=== PATIENT | male | born 1965 | race Caucasian/White ===

== ENCOUNTER 2023-05-21 14:44 | Observation (INO) ==
[2023-05-21 15:49] LABS: Albumin Globulin Ratio 1.6 (0.9-2); Albumin Level 4.6 gm/dl (3.4-5.0); BUN Creatinine Ratio 22.1 (10-20); Bilirubin,Total 0.6 mg/dl (0.2-1.0); Calcium 9.3 mg/dl (8.6-10.3); Creatinine Clr Calc Pharmacy 107.1 ml/min; Est GFR (African American) 102.6 ml/min; Est GFR (Non-African American) 88.5 ml/min; Globulin 2.9 gm/dl (2.5-4.0); Potassium 3.7 mmol/L (3.5-5.1); Total Protein 7.5 gm/dl (6.0-8.3)
[2023-05-21 15:51] LABS: Basophils # (auto) 0.06 K/uL (0.00-0.20); Basophils % (auto) 0.8 %; Eosinophils # (auto) 0.08 K/uL (0.00-0.50); Hematocrit (blood only) 44.8 % (42.0-52.0); Hemoglobin 15.2 g/dl (14.0-18.0); Immature Granulocytes # (auto) 0.02 K/uL (0.01-0.20); Immature Granulocytes % (auto) 0.3 %; Lymphocytes # (auto) 1.63 K/uL (1.20-3.40); Lymphocytes % (auto) 21.4 %; Mean Corpuscular Hemoglobin 30.6 pg (25.0-34.0); Mean Corpuscular Hgb Conc 33.9 g/dL (32.0-36.0); Mean Corpuscular Volume 90.3 fL (80.0-100.0); Monocytes # (auto) 0.63 K/uL (0.11-0.59); Monocytes % (auto) 8.3 %; Neutrophils # (auto) 5.21 K/uL (1.40-6.50); Neutrophils % (auto) 68.2 %; Platelet Count 306 K/uL (130-400); RDW Coefficient of Variation 12.6 % (11.5-14.5); RDW Standard Deviation 41.6 fL (36.4-46.3); Red Blood Count 4.96 M/uL (4.70-6.10); White Blood Count 7.63 K/ul (4.8-10.8)
--- NOTE | 2023-05-21 16:00 | Emergency Department Note ---
Impression & Plan Near syncope, Unsteady, Heart palpitations, Brain fog ED Provider Note Provider: Amado Horne MD DATE OF SERVICE: 05/21/2023 CHIEF COMPLAINT: Feeling off, palpitations HISTORY OF PRESENT ILLNESS: Patient is a 58-year-old gentleman history of hypertension visiting from [place] to [place] presenting stating approximately 4 to 5 days of symptoms. Reports on Monday he got home from work in the evening and had sudden onset when looking at the window of some unsteadiness that was fairly prominent Monday and . No headache or falls. States felt little better Monday came to [facility] and just felt since things started on Monday that is been a little bit foggy or disconnected. Was out hunting briefly early this morning and came back. Has not slept the best but that is normal. Eating okay without nausea or abdominal pain. Denies chest pain or shortness of breath. Denies headache. Reports this afternoon he then felt more disconnected and off and like things were not right and thus came here. Mobile his heart was beating a little bit fast. Does relate that he had a tick bite about 3 weeks ago and had 2 capsules of doxycycline for this. The red area around the area where the tick was resolved. States something like this happened a year or so ago but was more transient and resolved. Patient states he is walking better now but prickly Monday into felt like he was almost drunk with walking. Denies vertiginous or double vision symptoms. PAST MEDICAL HISTORY: As noted above MEDICATIONS: Reviewed home medications SOCIAL HISTORY: , denies drug use or significant alcohol use PHYSICAL EXAM: GENERAL: alert and oriented in no acute distress on stretcher Head: normocephalic and atraumatic EYES: No injection, discharge or icterus. PERRL, EOMI. NECK: Trachea midline. Supple. ENT: Mucous membranes pink and moist. TMs clear bilaterally LUNGS: Airway patent. No retractions. Breath sounds clear with good air entry bilaterally. HEART: Regular rate and rhythm. No chest wall tenderness ABDOMEN: Soft and non-tender, without guarding or rebound. SKIN: Acyanotic, warm, dry, without rashes with only a small 2 mm area of scab in the right lower abdominal wall he reports that the prior site of the tick without evidence of retained foreign body or pieces. No significant surrounding erythema or crepitus. EXTREMITIES: Without swelling, tenderness or deformity NEUROLOGICAL: No focal deficits. No aphasia. No facial droop or slurred speech. Tongue midline. Normal [id number] testing without ataxia. Normal strength and tone in the extremities. Sensation to gross touch normal. Ambulatory with a steady ambulatory gait several steps in the room. EK bpm sinus rhythm with PAC. No acute ST segment elevation or depression with a QTc of 445. CONTINUOUS CARDIAC MONITORING: was ordered and showed a heart rate of 70s to 90s bpm in sinus rhythm occasional PACs Patient's laboratory studies and imaging reviewed. Differential includes Infection, dehydration, metabolic abnormality, hypo/hyperglycemia, electrolyte disturbance, anemia, hypoxia, cardiac sources, intracerebral event, toxicologic, neurologic, as well as other pathologies. IMPRESSION/MEDICAL DECISION MAKING: Patient well-appearing. From triage some basic labs EKG and chest x-ray ordered. No syncope but has felt at times little bit near syncopal. Denies significant shortness of breath, fever, URI, or weakness but has as described above felt unsteady at some points. No significant ataxia on exam here with good strength and sensation on exam. Not really provokable symptomatology here. EKG without evidence of significant arrhythmia. Basic blood work without significant signs of sepsis or systemic infection, negative rapid Lyme testing, normal electrolytes, renal function, and LFTs. Given patient's concern regarding the recent tick bite anaplasmosis smear as well as send off reference tickborne disease testing was sent. The patient's not experiencing severe deficits or hemiplegia and I question based on his unsteadiness acutely he reports several days ago presenting to some degree possibly an occult posterior circulation stroke and as such discussed with him proceeding with an MRI to further evaluate for this. He was in agreement. He does not appear meningitic. Do not feel he requires a lumbar puncture. Given age and symptoms doubt this represents MS. No significant focality. Additional testing completed here with an unremarkable anaplasmosis smear reported. Again sent out for additional tickborne maladies was ordered. TSH and troponin are reassuring. MRI of the brain completed to exclude occult stroke and per radiology no acute findings noted. Unclear what may exactly be causing his symptoms. Again not significantly tachycardic or hypoxic and I do not believe this represents PE. Not having significant pain complaints. Nonspecific symptoms at this point without true syncope. Discussed with the patient. Discussed with him unsure that observation would be that beneficial versus close outpatient follow-up. In shared decision-making with him while frustrating we do not have an answer for an etiology to his symptoms. He states he has had recurrent episodes of some near syncope and worsened unsteadiness and fogginess. Reports he contacted his doctors office and cannot follow-up, June. Discussion with him wishes to stay for further evaluation. Hospitalist team contacted. DIAGNOSIS: Near syncope, fatigue, unsteady, palpitations DISPOSITION: Evaluated by the [facility] hospitalist. Past Med/Surg History Social History Smoking Status: Never smoker Tobacco Type: Smokeless Tobacco (Dip or Chew) Do You Dip or Chew Tobacco: Yes; Hx Alcohol Use: Yes Alcohol type: beer Hx Substance Use: No Preferred Language: Lao Communication Ability: Effective Marketing Systems Analyst Required: No Beliefs That Will Affect Care: None Current Living Situation: Spouse Other Information That Helps Us Care for You: No Feels Safe at Home: Yes Safety Concerns: Feels Safe At This Time Assistive Devices: Glasses Allergies Allergies Allergy/AdvReac Type Severity Reaction Status Date / Time No Known Allergies Allergy Unverified 05/21/23 19:09 Home Meds Home Medications Medication Instructions Recorded Confirmed Vitamin D Or K 0 mg PO DAILY 05/21/23 05/21/23 amlodipine 5 mg tablet 5 mg PO PM 05/21/23 05/21/23 losartan 50 mg tablet 50 mg PO PM 05/21/23 05/21/23 multivitamin 1 tab PO QAM 05/21/23 05/21/23 potassium citrate 10 mEq (1,080 10 meq PO DAILY 05/21/23 05/21/23 mg) tablet,extended release Results & Data (ED) Vital Signs Vital Signs - 24 hr 05/21/23 14:50 05/21/23 16:43 05/21/23 16:44 Temperature 36.5 C Temperature Source Temporal Artery Scan Pulse Rate 96 H 79 81 Pulse Rate [Apical] Respiratory Rate 20 17 Blood Pressure 158/104 H Blood Pressure [Right Arm] Blood Pressure Mean 122 Blood Pressure Mean [Right Arm] Pulse Oximetry 96 Oxygen Delivery Method Room Air Oxygen Flow Rate Sepsis Recent Fever Within 48 Hours No Sepsis New/Unexplained Change in Mental Status N/A Sepsis Action Taken by Nursing No Action Required 05/21/23 16:50 05/21/23 17:00 05/21/23 17:52 Temperature Temperature Source Pulse Rate 75 77 Pulse Rate [Apical] Respiratory Rate 14 17 Blood Pressure Blood Pressure [Right Arm] Blood Pressure Mean Blood Pressure Mean [Right Arm] Pulse Oximetry 98 Oxygen Delivery Method Room Air Oxygen Flow Rate 0 Sepsis Recent Fever Within 48 Hours Sepsis New/Unexplained Change in Mental Status Sepsis Action Taken by Nursing 05/21/23 18:00 Temperature Temperature Source Pulse Rate Pulse Rate [Apical] 74 Respiratory Rate 18 Blood Pressure Blood Pressure [Right Arm] 160/97 H Blood Pressure Mean Blood Pressure Mean [Right Arm] 118 Pulse Oximetry 98 Oxygen Delivery Method Oxygen Flow Rate Sepsis Recent Fever Within 48 Hours Sepsis New/Unexplained Change in Mental Status Sepsis Action Taken by Nursing Laboratory Data 05/21/23 15:15 05/21/23 15:15 Lab Results 05/21/23 05/21/23 Range/Units 15:15 17:02 WBC 7.63 (4.8-10.8) K/ul RBC 4.96 (4.70-6.10) M/uL Hgb 15.2 (14.0-18.0) g/dl Hct 44.8 (42.0-52.0) % MCV 90.3 (80.0-100.0) fL MCH 30.6 (25.0-34.0) pg MCHC 33.9 (32.0-36.0) g/dL RDW Std Deviation 41.6 (36.4-46.3) fL RDW Coeff of Hunter 12.6 (11.5-14.5) % Plt Count 306 (130-400) K/uL MPV 9.0 L (9.4-12.4) fL Immature Gran % (Auto) 0.3 % Neut % (Auto) 68.2 % Lymph % (Auto) 21.4 % Warren % (Auto) 8.3 % Eos % (Auto) 1.0 % Baso % (Auto) 0.8 % Neut # (Auto) 5.21 (1.40-6.50) K/uL Lymph # (Auto) 1.63 (1.20-3.40) K/uL Warren # (Auto) 0.63 H (0.11-0.59) K/uL Eos # (Auto) 0.08 (0.00-0.50) K/uL Baso # (Auto) 0.06 (0.00-0.20) K/uL Immature Gran # (Auto) 0.02 (0.01-0.20) K/uL Sodium 139 (136-145) mmol/L Potassium 3.7 (3.5-5.1) mmol/L Chloride 105 (98-107) mmol/L Carbon Dioxide 25 (21-32) mmol/L Anion Gap 9 (3-11) BUN 21 (6-23) mg/dl Creatinine 0.95 (0.6-1.4) mg/dl Est Cr Clr Drug Dosing 107.1 ml/min Est GFR ( Amer) 102.6 ml/min Est GFR (Non-Af Amer) 88.5 ml/min BUN/Creatinine Ratio 22.1 H (10-20) Glucose 102 H (70-99(Fasting)) mg/dl Calcium 9.3 (8.6-10.3) mg/dl Magnesium 2.2 (1.7-2.4) mg/dl Total Bilirubin 0.6 (0.2-1.0) mg/dl AST 20 (13-39) U/L ALT 24 (7-52) U/L Alkaline Phosphatase 91 (34-104) U/L Troponin I High Sens 2.9 (0-20) pg/ml Total Protein 7.5 (6.0-8.3) gm/dl Albumin 4.6 (3.4-5.0) gm/dl Globulin 2.9 (2.5-4.0) gm/dl Albumin/Globulin Ratio 1.6 (0.9-2) TSH 1.713 (0.300-4.500) uIu/ml Anaplasma Smear See Comment Lyme Disease IgG Ab Negative (Negative) Lyme Disease IgM Ab Negative (Negative) Administered Medications Discontinued Medications Sodium Chloride (Nss) 1,000 mls @ 999 mls/hr IV .Q1H1M ONE Stop: 05/21/23 17:34 Last Infusion: 05/21/23 18:11 Dose: Infused Documented By: Admin: 05/21/23 17:02 Dose: 999 mls/hr Documented By: KT Imaging Data Radiologist's Impression: Chest X-Ray 05/21/23 14:54 XR chest 1V not portable CLINICAL HISTORY: SOB TECHNIQUE: Single frontal radiograph of the chest was obtained. Comparison: None available at the time of this dictation. FINDINGS: No lines and tubes are seen. The cardiomediastinal silhouette is normal. The lungs are clear. No evidence of pleural effusion or pneumothorax. IMPRESSION: No acute chest disease. ACT 112: Negative or not required by law. Electronically signed by: Tommy Bertrand M.D. 05/21/2023 4:07 PM Brain MRI 05/21/23 16:33 MR brain wo con CLINICAL HISTORY: unsteady, balance issues TECHNIQUE: Multiplanar and multisequence MR images of the brain were obtained without intravenous contrast. Comparison: None available at the time of this dictation. FINDINGS: No abnormal restricted diffusion is identified. The white matter is unremarkable. The ventricular system is normal in appearance. No mass is seen. There is no mass effect or midline shift. There is no evidence of acute intraparenchymal hemorrhage. No extra axial fluid collections are seen. The corpus callosum, pituitary gland, and cerebellar tonsils appear grossly unremarkable. Flow voids of the major intracranial arterial vessels are identified. The imaged portions of the paranasal sinuses, mastoid air cells, and orbits are unremarkable. IMPRESSION: No acute abnormalities. ACT 112: Negative or not required by law. Electronically signed by: Tommy Bertrand M.D. 05/21/2023 5:38 PM Discharge Plan Visit Data Chief Complaint: Shortness of Breath/Dyspnea Stated Complaint: DIFFICULTY BREATHING, "FEELS WEIRD" ED Provider: Amado Horne Discharge Problem: Near syncope, Unsteady, Heart palpitations, Brain fog Patient Disposition: Admitted As Inpatient Discharge Instructions Interventions: ED Discharge Assessment Last Done: 05/21/23 22:05
--- NOTE | 2023-05-21 16:09 | XRay Report ---
XR chest 1V not portable CLINICAL HISTORY: SOB TECHNIQUE: Single frontal radiograph of the chest was obtained. Comparison: None available at the time of this dictation. FINDINGS: No lines and tubes are seen. The cardiomediastinal silhouette is normal. The lungs are clear. No evid ence of pleural effusion or pneumothorax. IMPRESSION: No acute chest disease. ACT 112: Negative or not required by law. Electronically signed by: Tommy Bertrand M.D. 05/21/2023 4:07 PM
[2023-05-21 16:21] LABS: Lyme Ab IgG w/WB Rflx Negative (Negative); Lyme Ab IgM w/WB Rflx Negative (Negative)
[2023-05-21] MEDS ORDERED: SODIUM CHLORIDE 0.9% 1,000 ML IV ONE (16:34)
[2023-05-21 17:30] LABS: Magnesium 2.2 mg/dl (1.7-2.4)
[2023-05-21 17:37] LABS: Troponin I High Sensitivity 2.9 pg/ml (0-20)
--- NOTE | 2023-05-21 17:41 | Magnetic Resonance Report ---
MR brain wo con CLINICAL HISTORY: unsteady, balance issues TECHNIQUE: Multiplanar and multisequence MR images of the brain were obtained without intravenous con trast. Comparison: None available at the time of this dictation. FINDINGS: No abnormal restricted diffusion is identified. The white matter is unremarkable. The ventricular sys tem is normal in appearance. No mass is seen. There is no mass effect or midline shift. There is no e vidence of acute intraparenchymal hemorrhage. No extra axial fluid collections are seen. The corpus c allosum, pituitary gland, and cerebellar tonsils appear grossly unremarkable. Flow voids of the major intracranial arterial vessels are identified. The imaged portions of the para nasal sinuses, mastoid air cells, and orbits are unremarkable. IMPRESSION: No acute abnormalities. ACT 112: Negative or not required by law. Electronically signed by: Tommy Bertrand M.D. 05/21/2023 5:38 PM
[2023-05-21 17:46] LABS: Thyroid Stimulating Hormone 1.713 uIu/ml (0.300-4.500)
--- NOTE | 2023-05-21 18:51 | History & Physical Report ---
Date of Service May 21, 2023 Assessment & Plan (1) Brain fog: (2) Unsteady: (3) Near syncope: (4) SOB (shortness of breath): Plan Pt is a 58yoM with PMhx of HTN presenting with concern for repeated episodes of unsteadiness on his feet and brain fog with associated SOB today. Gait unsteadiness Brain fog States that the Monday before had gait unsteadiness and presyncope with brain fog afterwards. Was better for 2 days, came down from [place] for hunting camp. Was cooking and cleaning today with repeat episode and "weird sensation" going through body and altered perception, brain fog persisting even now Also noted SOB, but unsure if he worked himself up from the episode Notes Hx of tick bite a month ago, treated with one dose of doxycycline at that time. In the ED, labs unremarkable, Brain MRI with no acute changes Lyme negative, anaplasma smear negative, further tick borne labs pending AM lipid panel, [id number] ordered, echo pending Differential includes tick borne illness vs. TIA vs. other Neuro consult- appreciate further recs SOB Pt notes SOB earlier today during his episode He notes that he possibly could have worked himself up with concern about what was happening Resting comfortably on exam, no increased oxygen need Chest xray with no acute changes, EKG sinus with PACs Echo ordered and pending Possible component of anxiety Continue to monitor HTN Pt unsure of his home medications for BP but notes he is currently on amlodipine. Unsure of the other meds. Continue home medications CODE STATUS: Full code Diet: HH DVT prophylaxis: Lovenox SQ Dispo: Med/Surg with tele History of Present Illness Chief Complaint: SOB, "weird feeling" Primary Care Provider: NO PCP Pt is a 58yoM with PMhx of HTN presenting with concern for repeated episodes of unsteadiness on his feet and brain fog with associated SOB today. Pt states that he lives in the [place] area and is visiting [place] for a hunting camp. States that the Monday before , he was urinating and just looking out the window when he had the sensation of unsteadiness on his feet. States his brain felt foggy, his heart was racing but did not pass out. he notes he was not straining during that time as he was urinating and not having a bowel movement. States he "lost equilibrium" and went to bed. States that he was fine for 2 days and decided to come down to [place] for the hunting camp. Was inside cooking and cutting steak when he had the same sensation again and a "weird feeling" went through his whole body. Notes that his brain felt foggy once more and hand and feet were sweaty. Notes he has chronic tingling in his lower extremities but denies a Hx of diabetes. States he has a Hx of HTN, knows he is on amlodipine but forgot the name of his other medication, but his would know. States that he was bitten by a tick about a month ago as well as possible spider bites. Was seen at urgent care and given a dose of 2 doxycycline tabs. States that he would like to find out what is going on with him and is requesting admission noting that he cannot get an appt with his PCP until June. Allergies Allergy/AdvReac Type Severity Reaction Status Date / Time No Known Allergies Allergy Unverified 05/21/23 19:09 Home Medications Medication Instructions Recorded Confirmed Type Vitamin D Or K 0 mg PO DAILY 05/21/23 05/21/23 History amlodipine 5 mg tablet 5 mg PO PM 05/21/23 05/21/23 History losartan 50 mg tablet 50 mg PO PM 05/21/23 05/21/23 History multivitamin 1 tab PO QAM 05/21/23 05/21/23 History potassium citrate 10 mEq (1,080 10 meq PO DAILY 05/21/23 05/21/23 History mg) tablet,extended release Past Med/Surg History Social History Smoking Status: Light tobacco smoker Tobacco Type: Smokeless Tobacco (Dip or Chew) Preferred Language: Swazi Feels Safe at Home: Yes Review of Systems Review of Systems: All systems reviewed & are unremarkable except as noted in HPI & below Physical Exam Physical Exam: General: Alert, oriented. No acute distress Skin: No noted rashes or bruises Psych: Appropriate mood and affect Neuro: No gross deficits while sitting in bed HEENT: NC/AT Chest: Nontender to palpation. CV: RRR, Normal s1, s2. Resp: Breath sounds clear bilaterally, no increased effort of breathing. Abdomen: Soft, nontender, nondistended. No guarding. No organomegaly appreciated. Extremities: No edema in lower extremities bilaterally. Results & Data Results & Data Vital Signs (Past 12 Hours) Vital Signs Temp Pulse Pulse Resp BP BP Pulse Ox 05/21/23 18:00 74 18 160/97 H 98 05/21/23 17:52 98 05/21/23 17:00 77 17 05/21/23 16:50 75 14 05/21/23 16:44 81 05/21/23 16:43 79 17 05/21/23 14:50 36.5 C 96 H 20 158/104 H 96 O2 Del Method O2 Flow Rate 05/21/23 18:00 05/21/23 17:52 Room Air 0 05/21/23 17:00 05/21/23 16:50 05/21/23 16:44 05/21/23 16:43 05/21/23 14:50 Room Air Diagnostic Findings Chest X-Ray 05/21/23 14:54 XR chest 1V not portable CLINICAL HISTORY: SOB TECHNIQUE: Single frontal radiograph of the chest was obtained. Comparison: None available at the time of this dictation. FINDINGS: No lines and tubes are seen. The cardiomediastinal silhouette is normal. The lungs are clear. No evidence of pleural effusion or pneumothorax. IMPRESSION: No acute chest disease. ACT 112: Negative or not required by law. Electronically signed by: Tommy Bertrand M.D. 05/21/2023 4:07 PM Brain MRI 05/21/23 16:33 MR brain wo con CLINICAL HISTORY: unsteady, balance issues TECHNIQUE: Multiplanar and multisequence MR images of the brain were obtained without intravenous contrast. Comparison: None available at the time of this dictation. FINDINGS: No abnormal restricted diffusion is identified. The white matter is unremarkable. The ventricular system is normal in appearance. No mass is seen. There is no mass effect or midline shift. There is no evidence of acute intraparenchymal hemorrhage. No extra axial fluid collections are seen. The corpus callosum, pituitary gland, and cerebellar tonsils appear grossly unremarkable. Flow voids of the major intracranial arterial vessels are identified. The imaged portions of the paranasal sinuses, mastoid air cells, and orbits are unremarkable. IMPRESSION: No acute abnormalities. ACT 112: Negative or not required by law. Electronically signed by: Tommy Bertrand M.D. 05/21/2023 5:38 PM
[2023-05-21 19:58] LABS: Appearance Urine Clear (Clear); Bilirubin Urine Negative (Negative); Blood Urine Negative (Negative); Color Urine Yellow; Glucose Urine UA Negative (Negative); Ketones Urine Negative (Negative); Leukocyte Esterase Urine Negative (Negative); Nitrite Urine Negative (Negative); Protein Urine Negative (Negative); Specific Gravity Urine 1.011 (1.000-1.030); Urobilinogen Urine Negative (Negative)
[2023-05-21 20:29] LABS: Influenza A virus by PCR Negative (Neg); Influenza B virus by PCR Negative (Neg); RSV by PCR Negative (Neg); SARS CoV2 RNA(COVID-19) Ceph NEGATIVE (Negative)
[2023-05-21] MEDS ORDERED: LOSARTAN POTASSIUM 50 MG TAB PO SCH (21:00)
[2023-05-21] MEDS ORDERED: amLODIPine BESYLATE 5 MG TAB PO SCH (21:00)
--- OUTSIDE RECORDS SUMMARY | 2023-05-21 22:03 | External Medical Summary | Continuity of Care Document ---
Author Name Unknown Organization [address] [place] Address [address] 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 Role Phone Ekta Devon Kelly Primary Care Physician [phone] [phone] Date(s): 01/11/23 - 01/11/[address] [place] [facility] [address] [facility], [address] [place] [address] [phone] Encounter Diagnosis Dysplastic nevi(Discharge Diagnosis) - 01/11/23 Seborrheic keratoses(Discharge Diagnosis) - 01/11/23 Discharge Disposition: Home or Self Care Attending Physician: DEANDRE Mina Katie Allergies, Adverse Reactions, Alerts No Known Medication Allergies Assessment and Plan Extracted from: Title:Office Visit Note Author:MD Lis, Katerine marinelli Date:01/11/23 1.Dysplastic nevi Pt withatypical nevus syndrome. Has had several biopsies in the past that demonstrated dysplastic nevi. Pictures taken today ofchest andbackfor monitoring of numerous nevi. Educated on the use of solar protection, including sunscreen use, the importance of periodic self-evaluation, the ABCDE s of melanoma, and the warning signs of squamous cell carcinoma and basal cell carcinoma. Recommended periodic self exam. Handout provided with information regarding sun protection and skin cancer. 2.Seborrheic keratoses chronic, stable -Discussed etiology. No features concerning for malignancy on examination. Follow-up:1 year Coleen Hays MD PGY-2 Dermatology [phone] 2023-01-11 11:49:17 2023-01-11 11:49:31 2023-01-11 11:49:44 2023-01-11 11:50:33 Immunizations Given and Recorded Vaccine Date Status Refusal Reason SARS-CoV-2 (COVID-19) mRNA-1273 vaccine 1 11/03/20 Recorded SARS-CoV-2 (COVID-19) mRNA-1273 vaccine 2 10/06/20 Recorded measles/mumps/rubella virus vaccine 3 08/05/14 Rec orded tetanus/diphtheria/pertuss, acel (Tdap) 4 06/07/12 Recorded 1Result Comment: 2023-01-11: Historical information-source unspecified 2Result Comment: 2023-01-11: Historical information-source unspecified 3Result Comment: 2023-01-11: Historical information-source unspecified 4Result Comment: 2023-01-11: Historical information-source unspecified Medications amLODIPine 5 mg oral tablet Start: 08/06/20 9:08:00 EST, 1 tab, PO, Daily Start Date: 08/06/20 Status: Ordered Claritin 10 mg oral tablet Start: 12/31/14 9:41:00, 1 tab, PO, Daily, PRN: as needed for allergy symptoms Start Date: 12/31/14 Status: Ordered losartan 50 mg oral tablet Start: 02/18/21 11:24:00 EDT, 1 tab, PO, Daily Start Date: 02/18/21 Status: Ordered Multiple Vitamins oral tablet Start: 12/31/14 9:41:00, 1 tab, PO, Daily Start Date: 12/31/14 Status: Ordered potassium citrate 10 mEq oral tablet, extended release TAKE 1 TABLET (10 MEQ TOTAL) BY MOUTH TWICE A DAY. Start Date: 08/06/20 Status: Ordered Mental Status 01/11/23 Barriers to Learning one year None evide nt Mandatory Health Literacy Documentation Yes Health Literacy Communication Barriers N ever Primary Language Belgian Problem List Condition Confirmation Course Effective Dates Status Health St atus Informant Dysplastic nevus of trunk Confirmed Active Sebaceous hyperplasia of face Confirmed Active Tobacco user Confirmed Active Diagnosis Diagnosis Type Effective Dates Health Status Clinical Service Informant Seborrheic keratoses Discharge Diagnosis 01/11/23 Dysplastic nevi Discharge Diagnosis 01/11/23 Procedures Procedure Date Related Diagnosis Body Site Status Hernia Completed Lumbar spine Completed Social History Social History Type Response Smoking Status Never smoked cigaret trinity Sex Male Dermatology Outpatient Note * MD Duffy Katherine K: MODIFY [place], MD, Marisa K: MODIFY Event Display: Dermatology Outpt Note Authored Date: [id number] Chief Complaint Yearly skin check History of Present Illness Otto rios here for annual skin check. Last seen 08/2021. No bleeding sores or changing moles that patient is concerned of today. Dermatologic history: No personal history of skin cancer. Has a hx of multiple dysplastic nevi. Review of Systems General and skin review of systems negative other than what is in history of present illness and past medical history. Physical Exam Well developed, well nourishedpatientin no acute distress. Oriented and with appropriate mood and affect. Afull cutaneous exam was performed with close inspection where indicated and as allowedby the patient of the hair, scalp, face, lips, neck, chest, abdomen, back, right upper, left upper,right lower, left lower extremities, hands, feet, nails and digits. The groin and genitals were notincluded. The exam wasnormal except for the following findings: numerous scattered pigmented macules across back, chest, bilateral legs. see pictures below. few scattered staley/brown hyperkeratotic stuck on appearing waxy papules on upper back Assessment/Plan 1.Dysplastic nevi Pt withatypical nevus syndrome. Has had several biopsies in the past that demonstrated dysplasticnevi. Pictures taken today ofchest andbackfor monitoring of numerous nevi. Educated on the use of solar protection, including sunscreen use, the importance of periodic self-evaluation, the ABCDEs of melanoma, and the warning signs of squamous cell carcinoma and basal cell carcinoma. Recommended periodic self exam. Handout provided with information regarding sun protection and skin cancer. 2.Seborrheic keratoses chronic, stable -Discussed etiology. No features concerning for malignancy on examination. Follow-up:1 year Coleen Hays MD PGY-2 Dermatology [phone] Images 2023-01-11 11:49:17 2023-01-11 11:49:31 2023-01-11 11:49:44 2023-01-11 11:50:33 Attestation Attending Dermatology Note: I reviewed the patient's history, examined the patient and worked with the resident to develop and the diagnosis and management plan. Marisa Duffy MD Problem List/Past Medical History Ongoing Dysplastic nevus of trunk Sebaceous hyperplasia of face Tobacco user Procedure/Surgical History HerniaLumbar spine Medications amLODIPine(amLODIPine 5 mg oral tablet), 5 mg= 1 tab, PO, Daily loratadine(Claritin 10 mg oral tablet), 10 mg= 1 tab, PO, Daily, PRN losartan(losartan 50 mg oral tablet), 50 mg= 1 tab, PO, Daily multivitamin(Multiple Vitamins oral tablet), 1 tab, PO, Daily potassium citrate(potassium citrate 10 mEq oral tablet, extended release) Allergies No Known Medication Allergies Social History Smoking Status Never smoked cigarettes Tobacco Use:Unknown if ever smoked Smokeless tobacco use:Smokeless tobacco user within last 30 days Family History Melanoma in situ of skin: Mother. Stroke: Father. Health Status Family Member(s) Immunizations Vaccine Date Status SARS-CoV-2 (COVID-19) mRNA-1273 vaccine 11/03/2020 Recorded Comments : 2023-01-11: Historical information-source unspecified SARS-CoV-2 (COVID-19) mRNA-1273 vaccine 10/06/2020 Recorded Comments : 2023-01-11: Historical information-source unspecified measles/mumps/rubella virus vaccine 08/05/2014 Recorded Comments : 2023-01-11: Historical information-source unspecified tetanus/diphtheria/pertuss, acel (Tdap) 06/07/2012 Recorded Comments : 2023-01-11: Historical information-source unspecified Recommendations Health Maintenance Pending(in the next year) Due Adult Influenza Vaccine due12/24/22and every 1year Adult COVID-19 Vaccination due01/11/23Unknown Frequency Adult Tdap/Td Vaccine due01/11/23Unknown Frequency Body Mass Index due01/11/23Unknown Frequency Colorectal Cancer Screening due01/11/23Unknown Frequency Hepatitis C Screening due01/11/23One-time only Lipid Screening due01/11/23Unknown Frequency Shingles Vaccine due01/11/23One-time only Satisfied(in the past 1 year) There are no satisfied recommendations within the defined date range Electronic Signature on File CC: Devon Dash MD [place] [id number] * Electronically Reviewed/Signed by: Coleen Hays MD Author Signature Dt/Tm:01/11/2023 12:08 PM Resident Department of Dermatology Electronically Reviewed/Signed by: Marisa Duffy MD Cosigner Signature Dt/Tm: 01/11/2023 01:23 PM Department of Dermatology CW Patient Care team information Care Team Personnel Name: MD Dash John Y Position: Referring Member Role: Primary Care Provider Address: Address: [address] [place] [address] [place] Care Team Related Persons Name: NGA AVITIA Address: home [address] [facility] [phone] Name: ANGELES AVITIA Address: home [address] [facility] [place] [id number]
[2023-05-22] MEDS: ENOXAPARIN INJ 40 MG/0.4 ML SYR SQ SCH ×2 (00:04→20:52)
[2023-05-22 04:17] LABS: Albumin Globulin Ratio 1.2 (0.9-2); Albumin Level 3.7 gm/dl (3.4-5.0); BUN Creatinine Ratio 17.4 (10-20); Basophils # (auto) 0.04 K/uL (0.00-0.20); Basophils % (auto) 0.6 %; Bilirubin,Total 0.9 mg/dl (0.2-1.0); Calcium 8.9 mg/dl (8.6-10.3); Chol HDL Ratio 4.3 (0-5); Creatinine Clr Calc Pharmacy 110.5 ml/min; Eosinophils % (auto) 1.5 %; Est GFR (African American) 106.6 ml/min; Hematocrit (blood only) 42.5 % (42.0-52.0); Hemoglobin 14.4 g/dl (14.0-18.0); Immature Granulocytes # (auto) 0.02 K/uL (0.01-0.20); Immature Granulocytes % (auto) 0.3 %; Lymphocytes # (auto) 2.35 K/uL (1.20-3.40); Lymphocytes % (auto) 35.6 %; Magnesium 2.2 mg/dl (1.7-2.4); Mean Corpuscular Hemoglobin 30.4 pg (25.0-34.0); Mean Corpuscular Hgb Conc 33.9 g/dL (32.0-36.0); Mean Corpuscular Volume 89.7 fL (80.0-100.0); Mean Platelet Volume 9.1 fL (9.4-12.4); Monocytes # (auto) 0.55 K/uL (0.11-0.59); Monocytes % (auto) 8.3 %; Neutrophils # (auto) 3.54 K/uL (1.40-6.50); Neutrophils % (auto) 53.7 %; Phosphorus 3.7 mg/dl (2.5-4.9); Platelet Count 278 K/uL (130-400); RDW Coefficient of Variation 12.6 % (11.5-14.5); RDW Standard Deviation 41.8 fL (36.4-46.3); Red Blood Count 4.74 M/uL (4.70-6.10); Total Protein 6.7 gm/dl (6.0-8.3)
[2023-05-22 07:17] LABS: Estimated Average Glucose 111 mg/dl; Hemoglobin A1C 5.5 % (4.5-5.6)
[2023-05-22] MEDS: DOXYCYCLINE HYCLATE 100 MG CAP PO SCH ×2 (11:55→20:52)
[2023-05-22 13:16] LABS: Folate (Folic Acid),Ser orPlas > 22.30 ng/ml (>5.38)
[2023-05-22 13:17] LABS: Vitamin B12 472 pg/ml (180-914)
--- NOTE | 2023-05-22 15:50 | Neurology Consultation ---
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 PT/OT evaluations Consider longer term outpatient cardiac monitoring (2) Brain fog: Suspect sleep apnea Continue to monitor mentation Limit sedative medications Monitor neurological assessments Monitor overnight pulse ox Consider sleep study or inpatient pulse oximetry study overnight Consider outpatient neuropsych testing/further cognitive workup Agree with continued antimicrobial therapy Continue workup for Lyme dz Telehealth Consultation Telehealth Information Telehealth Information: I performed this visit using a real-time telehealth connection between my location and the patients location ([facility]). After connec ting through interactive tele-video, patient was identified by name and date of and/or wristband check.Patient (or authorized healthcare field representative) was informed that this was a telemedicine visit and it was being conducted confidentially over secure lines. My office door was closed and no one else was present in the room with me.Patient (or authorized healthcare field representative) provided consent to proceed with the visit, expressed an understanding of privacy and security of the telemedicine visit, and gave permission to have a hospital field representative in the room in order to assist with the visit and to conduct portions of the visit, as needed. I informed the patient (or authorized healthcare field representative) that I reviewed their record and presented the opportunity for them to ask any questions regarding the visit today. The patient agreed to participate. History of Present Illness Reason for Consultation: Possible TIA Requesting Physician: Dr. Sivla Attending Physician: Pham Lozada MD History of Present Illness 58yo male presented to ER with complaint of overall abnormal feeling and "brain fog" he noted palpitations during event and felt "off" could not ambulate and noted bilateral upper and lower extremity paresthesia in hands and feet. He reports a similar event occurring in the spring. He notes being bitten by a tick recently and also believes he was bitten by a spider. He does report that he struggles to obtain adequate sleep noting awakening from sleep multiple times per night and having difficulty initiating sleep onset as well. He reports cooking thanksgiving dinner and having company- he consumed a few beers but did not feel his diet or ETOH intake was out of the norm for him. He came to [facility] to a hunting camp and reports he was eating and drinking as normally but noted further sleep loss night prior to the event. During the event he is able to recall intense anxiety and palpitations but can confirm palpitations were not present at onset of event. He denies associated chest pain. No reports loss of consciousness. He does not endorse head trauma. He denies awakening from sleep short of breath or with palpitations. He does reports feeling tired during daytime and will get headaches. He states he has rincon a ziopatch or similar in the past but has never undergone sleep study. He reports being treated with doxycycline after previous tick bites but also notes that the durations was days not weeks of PO treatment. Allergies Allergy/AdvReac Type Severity Reaction Status Date / Time No Known Allergies Allergy Unverified 05/21/23 19:09 Home Medications Medication Instructions Recorded Confirmed Type Vitamin D Or K 0 mg PO DAILY 05/21/23 05/21/23 History amlodipine 5 mg tablet 5 mg PO PM 05/21/23 05/21/23 History losartan 50 mg tablet 50 mg PO PM 05/21/23 05/21/23 History multivitamin 1 tab PO QAM 05/21/23 05/21/23 History potassium citrate 10 mEq (1,080 10 meq PO DAILY 05/21/23 05/21/23 History mg) tablet,extended release Patient History Social History Smoking Status: Never smoker Tobacco Type: Smokeless Tobacco (Dip or Chew) Do You Dip or Chew Tobacco: Yes; Hx Alcohol Use: Yes Alcohol type: beer Hx Substance Use: No Preferred Language: Azeri Communication Ability: Effective Mandarin Chinese Teacher Required: No Beliefs That Will Affect Care: None Current Living Situation: Spouse Other Information That Helps Us Care for You: No Feels Safe at Home: Yes Safety Concerns: Feels Safe At This Time Assistive Devices: None Review of Systems At this time: No reported cephalgia or cervicalgia Denies chest pain/palpitations or shortness of breath No reported changes in vision hearing dizziness syncope seizure like activity or paresthesia Denies recent fevers chills nausea vomiting changes in bowels or bladder Denies recent medication changes, recent illness or sick contacts, no reported recent travel Physical Exam Neurological Examination: Mental Status: Awake and alert. Oriented to person, place, and time. Fluency naming repetition and comprehension appear grossly intact. Affect remains appropriate. CN testing: I: Denies changes in ability to smell II:Reports no changes in visual acuity III/IV/: No evidence of gaze preference, hippus, nystagmus or roving eye movements V: Facial sensation reportedly grossly intact to light touch bilaterally VII: Facial movements appear without evidence of asymmetry VIII: Hearing appears grossly intact to loud voice bilaterally IX/X: Palate appears to elevate symmetrically XI: Shoulder shrug appears symmetric/ grossly intact bilaterally XII: Tongue protrudes midline without evidence of biting Motor exam: Strength appears grossly intact in all extremities Tone and bulk appear appropriate Sensory: Sensation is reportedly grossly intact throughout Coordination: Finger to nose and heel to smith were intact. No apparent evidence of dysmetria or dysdiadochokinesia Reflexes: 2+ throughout the upper and lower extremities while plantar are downgoing bilaterally. Gait: Deferred Results & Data Vital Signs (Past 12 Hours) Vital Signs Pulse Pulse Resp BP BP Pulse Ox O2 Del Method 05/22/23 15:00 91 H 16 96 05/22/23 14:39 89 20 95 05/22/23 14:39 137/89 05/22/23 14:00 78 21 05/22/23 13:00 66 20 05/22/23 12:00 66 21 05/22/23 11:20 82 17 05/22/23 11:20 151/99 H 05/22/23 11:00 79 14 05/22/23 10:50 80 24 05/22/23 10:50 135/88 05/22/23 10:00 72 22 113/53 L 96 Nasal Cannula 05/22/23 09:00 62 18 106/58 L 96 Nasal Cannula 05/22/23 08:00 61 17 95/68 L 95 Nasal Cannula 05/22/23 07:58 61 05/22/23 07:00 60 16 106/66 97 Room Air 05/22/23 05:44 76 14 106/66 95 Room Air O2 Flow Rate 05/22/23 15:00 05/22/23 14:39 05/22/23 14:39 05/22/23 14:00 05/22/23 13:00 05/22/23 12:00 05/22/23 11:20 05/22/23 11:20 05/22/23 11:00 05/22/23 10:50 05/22/23 10:50 05/22/23 10:00 3 05/22/23 09:00 3 05/22/23 08:00 3 05/22/23 07:58 05/22/23 07:00 05/22/23 05:44 Laboratory Results Abnormal lab results 05/21/23 05/22/23 Range/Units 15:15 03:48 MPV 9.0 L 9.1 L (9.4-12.4) fL [place] # (Auto) 0.63 H (0.11-0.59) K/uL Chloride 108 H (98-107) mmol/L BUN/Creatinine Ratio 22.1 H (10-20) Glucose 102 H (70-99(Fasting)) mg/dl Triglycerides 215 H (0-150) mg/dl VLDL Cholesterol, Calc 43 H (0-30) mg/dl Diagnostic Findings Chest X-Ray 05/21/23 14:54 XR chest 1V not portable CLINICAL HISTORY: SOB TECHNIQUE: Single frontal radiograph of the chest was obtained. Comparison: None available at the time of this dictation. FINDINGS: No lines and tubes are seen. The cardiomediastinal silhouette is normal. The lungs are clear. No evidence of pleural effusion or pneumothorax. IMPRESSION: No acute chest disease. ACT 112: Negative or not required by law. Electronically signed by: Tommy Bertrand M.D. 05/21/2023 4:07 PM Brain MRI 05/21/23 16:33 MR brain wo con CLINICAL HISTORY: unsteady, balance issues TECHNIQUE: Multiplanar and multisequence MR images of the brain were obtained without intravenous contrast. Comparison: None available at the time of this dictation. FINDINGS: No abnormal restricted diffusion is identified. The white matter is unremarkable. The ventricular system is normal in appearance. No mass is seen. There is no mass effect or midline shift. There is no evidence of acute intraparenchymal hemorrhage. No extra axial fluid collections are seen. The corpus callosum, pituitary gland, and cerebellar tonsils appear grossly unremarkable. Flow voids of the major intracranial arterial vessels are identified. The imaged portions of the paranasal sinuses, mastoid air cells, and orbits are unremarkable. IMPRESSION: No acute abnormalities. ACT 112: Negative or not required by law. Electronically signed by: Tommy Bertrand M.D. 05/21/2023 5:38 PM Medications Administered Home Medications Medication Instructions Recorded Confirmed Last Taken Vitamin D Or K 0 mg PO DAILY 05/21/23 05/21/23 Unknown amlodipine 5 mg tablet 5 mg PO PM 05/21/23 05/21/23 Unknown losartan 50 mg tablet 50 mg PO PM 05/21/23 05/21/23 Unknown multivitamin 1 tab PO QAM 05/21/23 05/21/23 Unknown potassium citrate 10 mEq (1,080 10 meq PO DAILY 05/21/23 05/21/23 Unknown mg) tablet,extended release Active Medications Generic Name Dose Route Start Last Admin Trade Name Freq PRN Reason Stop Dose Admin Doxycycline Hyclate 100 mg 05/22/23 11:30 05/22/23 11:55 Doxycycline Hyclate 100 Mg Cap PO 05/29/23 11:29 100 mg BID@1000,2200 NATTY Administration Enoxaparin Sodium 40 mg 05/21/23 22:06 05/22/23 00:04 Enoxaparin Inj 40 Mg/0.4 Ml Syr SQ 06/20/23 22:05 40 mg HS NATTY Administration
--- NOTE | 2023-05-22 17:11 | Hospitalist Progress Note ---
Date of Service May 22, 2023 Assessment & Plan (1) Brain fog: (2) Unsteady: (3) Near syncope: (4) SOB (shortness of breath): Plan Pt is a 58yoM with PMhx of HTN presenting with concern for repeated episodes of unsteadiness on his feet and brain fog admitted on 05/21 for evaluation of such. Gait unsteadiness Brain fog States that the Monday before had gait unsteadiness and presyncope with brain fog afterwards. Was better for 2 days, came down from [place] for hunting camp. Was cooking and cleaning today with repeat episode and "weird sensation" going through body and altered perception, brain fog persisting even now Also noted SOB, but unsure if he worked himself up from the episode Notes Hx of tick bite a month ago, treated with one dose of doxycycline at that time. In the ED, labs unremarkable, Brain MRI with no acute changes Lyme negative, anaplasma smear negative, further tick borne labs pending AM lipid panel elevated triglycerides, hgba1c 5.5, echo pending Differential includes tick borne illness vs. TIA vs. other Neuro consult- appreciate further recs -Suspects ?DOMINIC: overnight pulse oximetry ordered Tick Bite Scab remaining on RLQ despite over a month ago being bitten by tick -Start Doxycycline 100mg BID while labs result SOB SOB resolved, attributed to ?anxitey ECHO pending HTN Pt unsure of his home medications for BP but notes he is currently on amlodipine. Unsure of the other meds. Hold losartan relative hypotension, resume amlopidine CODE STATUS: Full code Diet: HH DVT prophylaxis: Lovenox SQ Dispo: Med/Surg with tele Admission and Anticipated Discharge Date Admission Date: May 21, 2023 Subjective NAEO Reports still having brain fog--states that symptoms have only occured 3 times in his life--last year, last monday and yesterday 05/21 He cannot describe symptoms clearly, very vague "all over body feeling" Review of Systems Review of Systems: All systems reviewed & are unremarkable except as noted in Subjective Physical Exam Constitutional: WD/WN, vitals as above Respiratory: normal respiratory effort, lungs clear to auscultation Cardiovascular: RRR, no murmur, no edema Skin: small scab on right lower abdomen, tender to touch no surrounding erythema Neurologic: PERRL, EOMI, accommodation nl, no face palsy, no dysarthria Results & Data Results & Data Vital Signs (Past 12 Hours) Vital Signs Temp Pulse Pulse Resp BP BP Pulse Ox 05/22/23 15:49 76 05/22/23 15:42 36.6 C 87 20 167/98 H 96 05/22/23 15:00 91 H 16 96 05/22/23 14:39 89 20 95 05/22/23 14:39 137/89 05/22/23 14:00 78 21 05/22/23 13:00 66 20 05/22/23 12:00 66 21 05/22/23 11:20 82 17 05/22/23 11:20 151/99 H 05/22/23 11:00 79 14 05/22/23 10:50 80 24 05/22/23 10:50 135/88 05/22/23 10:00 72 22 113/53 L 96 05/22/23 09:00 62 18 106/58 L 96 05/22/23 08:00 61 17 95/68 L 95 05/22/23 07:58 61 05/22/23 07:00 60 16 106/66 97 05/22/23 05:44 76 14 106/66 95 O2 Del Method O2 Flow Rate 05/22/23 15:49 05/22/23 15:42 Room Air 05/22/23 15:00 05/22/23 14:39 05/22/23 14:39 05/22/23 14:00 05/22/23 13:00 05/22/23 12:00 05/22/23 11:20 05/22/23 11:20 05/22/23 11:00 05/22/23 10:50 05/22/23 10:50 05/22/23 10:00 Nasal Cannula 3 05/22/23 09:00 Nasal Cannula 3 05/22/23 08:00 Nasal Cannula 3 05/22/23 07:58 05/22/23 07:00 Room Air 05/22/23 05:44 Room Air Laboratory Results Short CBC 05/22/23 Range/Units 03:48 WBC 6.60 (4.8-10.8) K/ul Hgb 14.4 (14.0-18.0) g/dl Hct 42.5 (42.0-52.0) % Plt Count 278 (130-400) K/uL BMP 05/22/23 03:48 Sodium 139 Potassium 4.0 Chloride 108 H Carbon Dioxide 24 BUN 16 Creatinine 0.92 Glucose 92 Calcium 8.9 Liver Function 05/22/23 Range/Units 03:48 Total Bilirubin 0.9 (0.2-1.0) mg/dl AST 19 (13-39) U/L ALT 22 (7-52) U/L Alkaline Phosphatase 72 (34-104) U/L Albumin 3.7 (3.4-5.0) gm/dl Urine 05/21/23 Range/Units 19:36 Urine Color Yellow Urine Appearance Clear (Clear) Urine pH 6.0 (4.5-7.5) Ur Specific [address] 1.011 (1.000-1.030) Urine Protein Negative (Negative) Urine Glucose (UA) Negative (Negative) Medications Administered Home Medications Medication Instructions Recorded Confirmed Last Taken Vitamin D Or K 0 mg PO DAILY 05/21/23 05/21/23 Unknown amlodipine 5 mg tablet 5 mg PO PM 05/21/23 05/21/23 Unknown losartan 50 mg tablet 50 mg PO PM 05/21/23 05/21/23 Unknown multivitamin 1 tab PO QAM 05/21/23 05/21/23 Unknown potassium citrate 10 mEq (1,080 10 meq PO DAILY 05/21/23 05/21/23 Unknown mg) tablet,extended release Active Medications Generic Name Dose Route Start Last Admin Trade Name Reynoldq PRN Reason Stop Dose Admin Doxycycline Hyclate 100 mg 05/22/23 11:30 05/22/23 11:55 Doxycycline Hyclate 100 Mg Cap PO 05/29/23 11:29 100 mg BID@1000,2200 NATTY Administration Enoxaparin Sodium 40 mg 05/21/23 22:06 05/22/23 00:04 Enoxaparin Inj 40 Mg/0.4 Ml Syr SQ 06/20/23 22:05 40 mg HS NATTY Administration
--- NOTE | 2023-05-22 17:41 | Electrocardiogram Report ---
Test Reason : Blood Pressure : / mmHG Vent. Rate : 091 BPM Atrial Rate : 091 BPM P-R Int : 148 ms QRS Dur : 094 ms QT Int : 362 ms P-R-T Axes : 058 012 012 degrees QTc Int : 445 ms Sinus rhythm with Premature atrial complexes Otherwise normal ECG No previous ECGs available Confirmed by Sebastian Loyd ([id number]) on 05/22/2023 5:41:31 PM Referred By: Confirmed By:Keith Loyd
[2023-05-22] MEDS ORDERED: amLODIPine BESYLATE 5 MG TAB PO SCH (21:00)
[2023-05-23 07:28] LABS: Hemoglobin 15.3 g/dl (14.0-18.0); Mean Corpuscular Hemoglobin 30.8 pg (25.0-34.0); Mean Corpuscular Hgb Conc 34.8 g/dL (32.0-36.0); Mean Corpuscular Volume 88.5 fL (80.0-100.0); Mean Platelet Volume 9.1 fL (9.4-12.4); Platelet Count 278 K/uL (130-400); RDW Coefficient of Variation 12.4 % (11.5-14.5); RDW Standard Deviation 40.5 fL (36.4-46.3); Red Blood Count 4.97 M/uL (4.70-6.10); White Blood Count 6.85 K/ul (4.8-10.8)
[2023-05-23] MEDS: DOXYCYCLINE HYCLATE 100 MG CAP PO SCH (10:43)
--- NOTE | 2023-05-23 11:43 | Discharge Summary ---
Discharge Summary Date of Service May 23, 2023 Notes For Next Care Provider Medication Changes From Visit -Doxycycline 10mg BID x 14 days -Hold losartan, resume if home BP consistently >130 Admission HPI Per Admitting Provider Pt is a 58yoM with PMhx of HTN presenting with concern for repeated episodes of unsteadiness on his feet and brain fog with associated SOB today. Pt states that he lives in the [place] area and is visiting [employer] for a hunting camp. States that the Monday before , he was urinating and just looking out the window when he had the sensation of unsteadiness on his feet. States his brain felt foggy, his heart was racing but did not pass out. he notes he was not straining during that time as he was urinating and not having a bowel movement. States he "lost equilibrium" and went to bed. States that he was fine for 2 days and decided to come down to [employer] for the hunting camp. Was inside cooking and cutting steak when he had the same sensation again and a "weird feeling" went through his whole body. Notes that his brain felt foggy once more and hand and feet were sweaty. Notes he has chronic tingling in his lower extremities but denies a Hx of diabetes. States he has a Hx of HTN, knows he is on amlodipine but forgot the name of his other medication, but his would know. States that he was bitten by a tick about a month ago as well as possible spider bites. Was seen at urgent care and given a dose of 2 doxycycline tabs. States that he would like to find out what is going on with him and is requesting admission noting that he cannot get an appt with his PCP until June. Admission Exam Per Admitting Provider Constitutional: WD/WN, vitals as above, NAD, sitting up in bed, pleasant, conversing easily Head: Normocephalic, Atraumatic Eyes: PERRL, conjunctivae normal, anicteric sclerae ENMT: external ear and nose normal, oropharynx normal Neck: trachea midline, no thyromegaly normal visual inspection Respiratory: normal respiratory effort, lungs clear to auscultation, no wheeze, rales, rhonchi. Normal insp/exp effort, no accessory muscle use Cardiovascular: RRR, no murmur, no edema Vessels: no JVD or carotid bruit Chest: normal inspection of chest Abdomen: normal bowel sounds, soft, nontender, no hepatosplenomegaly Musculoskeletal: no cyanosis or clubbing, Skin: no rashes, warm and dry normal turgor Neurologic: PERRL, EOMI, accommodation nl, no face palsy, no dysarthria CN's II-XI intact bilaterally and moves all extremities Psychiatric: A+Ox3, euthymic affect Lymphatic: no cervical or axillary lymphadenopathy : deferred Principal Dx & Hospital Course #1 = Principal Diagnosis (1) Brain fog: (2) Unsteady: (3) Near syncope: (4) SOB (shortness of breath): Plan Pt is a 58yoM with PMhx of HTN presenting with concern for repeated episodes of unsteadiness on his feet and brain fog admitted on 05/21 for evaluation of such. Work up was grossly unremarkable. MRI brain normal. ECHO without structural abnormalities. Telemetry with occasional PACs, but did not correlate to presentation/resolution of symptoms the morning of discharge. Oximetry overnight did not reveal any desaturations. Symptoms abated after initiation of doxycycline. He reported multiple arachnid bites (ticks/spiders) over the last month, with a recent ppx dose of doxy over a month ago. He states he has a spot ongoing on his RLQ that was from a tick, and has not healed. Firm and tender, but no fluctuance. Despite negative workup and concerning history, this prompted the initation of doxycycline for 14 day course. After two doses, patient reports resolution of all symptoms. It was also noted patient was hypotensive initially. losartan was held and amlodipine continued, with stable blood pressures. Recommended holding losartan with plans to resume at home if sbp >130 Gait unsteadiness Brain fog States that the Monday before had gait unsteadiness and presyncope with brain fog afterwards. Was better for 2 days, came down from [place] for hunting camp. Was cooking and cleaning today with repeat episode and "weird sensation" going through body and altered perception, brain fog persisting even now Also noted SOB, but unsure if he worked himself up from the episode Notes Hx of tick bite a month ago, treated with one dose of doxycycline at that time. In the ED, labs unremarkable, Brain MRI with no acute changes Lyme negative, anaplasma smear negative, further tick borne labs pending AM lipid panel elevated triglycerides, hgba1c 5.5, echo WNL Overnight pulse oximetry Recommend OP PCP follow up for possible holter if symptoms return Tick Bite Scab remaining on RLQ despite over a month ago being bitten by tick -Start Doxycycline 100mg BID x14 days -Advised PCP follow up to monitor lesion on RLQ SOB *resolved SOB resolved, attributed to ?anxiety ECHO wnl HTN Continue amlodipine, resume losartan if SBP >130 at home On day of discharge, patient eating well, ambulating without difficulty, and endorsed complete resolution of presenting symptoms. Discharge Exam Constitutional WD/WN, vitals as above Respiratory normal respiratory effort, lungs clear to auscultation Cardiovascular RRR, no murmur, no edema Gastrointestinal (Abdomen) normal bowel sounds, soft, nontender, no hepatosplenomegaly Updated Medication List Medication Instructions Recorded Confirmed Type Vitamin D Or K 0 mg PO DAILY 05/21/23 05/21/23 History amlodipine 5 mg tablet 5 mg PO PM 05/21/23 05/21/23 History losartan 50 mg tablet 50 mg PO PM 05/21/23 05/21/23 History multivitamin 1 tab PO QAM 05/21/23 05/21/23 History potassium citrate 10 mEq (1,080 10 meq PO DAILY 05/21/23 05/21/23 History mg) tablet,extended release doxycycline hyclate 100 mg capsule 100 mg PO BID 13 days #26 caps 05/23/23 Rx Hospital Stay Data Consultations 05/21/23 18:30 ED Decision to Admit Stat 05/22/23 08:00 Consult Neurology Routine Diagnostic Imagining Performed 05/21/23 16:33 MR brain wo con Stat Pending Results Patient Have Any Pending Studies at Discharge: No Discharge Instructions Given to Patient (Per Discharging Provider) You were admitted due to concerns of "brain fog", as well as generalized vague feeling that was difficult to articulate. MRI of your brain was without any signs of stroke, inflammation, or bleeding. ECHO (ultrasound of your heart) was with normal function and no signs of structural concern. Your EKG (electrical pattern of your heart) was in a normal rhythm. Your overnight oxygen level test was normal. B12 and Folate levels, as well as liver, kidney and other electrolytes were normal. ESR and CRP (markers of inflammation) were normal. The preliminary Tick-bourne illness test was normal; however, given your history of multiple bites from various arachnids (ticks/spiders) as well as area unhealed on your abdomen, it was felt necessary to treat you for the full duration of 14 days for a tick bourne disease. -Doxycycline 100mg twice a day until prescription is completed Please follow up with PCP regarding area on abdomen, if unchanged by 1-2 weeks of your treatment discuss if incision and drainage would be considered. Regarding your blood pressure, it was noted that you were relatively hypotensive (low pressure) during your admission. This could be because your intake was different than home, generally not feeling well, etc. Attached will be some instructions on how to best take your pressure. You will continue amlodipine as prescribed; however, if your top number (systolic) remains less than 130, please hold the Losartan and follow with your PCP. If these symptoms return, consider speaking with your primary care provider about obtaining a holter monitor (follows your heart rhythm over a duration of time) Total Time Total Time Spent Total Time Spent (In Minutes): 35
[2023-05-25 16:09] LABS: Ehrlichia chaff DNA Bld Negative (Negative)
[2023-05-26 01:37] LABS: Q Fever IgG, Phase I NEGATIVE; Q Fever Phase I IgM Antibody NEGATIVE; Q Fever Phase II IgG Antibody NEGATIVE; Q Fever Phase II IgM Antibody NEGATIVE; R. typhi IgG Ab NOT DETECTED; R. typhi IgM Ab NOT DETECTED; RMSF IgG Ab NOT DETECTED; RMSF IgM Ab NOT DETECTED
== END 2023-05-23 13:00 | disposition home or self-care (01) | DRG 884 ==
LOC: ED 14:44 → EDINP 18:49 → SUATTDRO 18:49 → INTOOBSV 18:49 → 2N 22:05